=== PATIENT | female | born 1935 | race Caucasian/White ===

== ENCOUNTER → 2019-01-26 | Outpatient (CLI) | payer MEDICARE ==
[~2019-01-26] MED LIST: ASA81 MG; CALCIUM300 MG; IOPAMIDOL 370 MG/ML 200 ML INFUS..BTL INJ ONE; LISINOPRIL-HCT1 EAC3; SODIUM CHLORIDE 0.9% 250ML 250 ML ONE; SODIUM CHLORIDE 0.9% 500ML 500 ML ONE; SODIUM CHLORIDE 0.9% 50ML 50 ML ONE; TRAMADOL HCL50 M1; Z ACIDOPHILUS; Z MAGNESIUM; Z VITAMIN C; Z.0.COLCRYS0.6 MG; Z.0.FISH OIL300 MG; Z.0.MELOXICAM15 MG; Z.0.METOPROLOL SUCC5; Z.0.PRILOSEC20 MG; Z.0.SYNTHROID25 MCG; Z.0.TYLENOL PM EX-1; Z.0.ZYLOPRIM300 MG; [UNRECOGNIZED DRUG - CODE]; [UNRECOGNIZED DRUG - OTHER]
[2019-01-26 11:06] LABS: CREATININE, SERUM 1.29 mg/dL (0.57-1.11)
--- NOTE | 2019-01-26 15:45 | Diagnostic Imaging Report ---
EXAM: CT ABDOMEN AND PELVIS with IV CONTRAST DATE: 01/26/2019 Time stamp on Exam: 1:00 PM INDICATION: Abdominal pain COMPARISON: 07/05/2014 TECHNIQUE: The abdomen and pelvis were scanned using a multidetector helical scanner. Coronal and sagittal reformations were obtained. Routine protocol performed. Technique modification was accomplished to maintain the lowest dose possible to the patient. IV Contrast: 100 cc of Isovue-370 Oral Contrast: Water Radiation Dose: Total DLP 673.63 mGy*cm Estimated effective dose: DLP x 0.015 x size factor FINDINGS: LOWER THORAX: Coronary artery calcification. The heart is enlarged. Small hiatal hernia. LIVER: Diffuse hepatic steatosis with no evidence of a mass. Exophytic right hepatic lobe nodule is unchanged compared to the prior study and represent degenerative of a developmental anomaly. BILIARY: The gallbladder is absent. No ductal dilatation. SPLEEN: No masses PANCREAS: No masses ADRENALS: No nodules KIDNEYS: Symmetric perfusion. No enhancing masses. No hydronephrosis. Malrotated right kidney. GI TRACT: No distention, wall thickening or evidence of obstruction. Sigmoid colon diverticulosis. VESSELS: Atherosclerotic vascular calcification. 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 PERITONEUM/RETROPERITONEUM: No free air or fluid LYMPH NODES: No lymphadenopathy REPRODUCTIVE ORGANS: Unremarkable BLADDER: Unremarkable SOFT TISSUES: Multiple supraumbilical small ventral hernias. Right femoral hernia with loops of small bowel bowel present within it. 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 Near complete fusion of T10 and T11. IMPRESSION: 1. No acute abnormality within the abdomen or pelvis. 2. Multiple abdominal wall hernias with a loop of bowel present in a right femoral hernia. 3. Sigmoid colon diverticulosis without findings of diverticulitis. 4. Splenic artery aneurysm. Signed by: Dr. Nikolay Maya DO on 01/26/2019 3:41 PM
== END ==
LOC: CT 10:31
PROVIDERS: ATTEND Family Medicine
DX: R10.84 Generalized abdominal pain (principal)
CPT/HCPCS: 36415; 74177; 82565; 84520; 96360; J7040; J7050; Q9967